=== PATIENT | male | born 1965 | race Caucasian/White ===

== ENCOUNTER → 2018-12-26 | Outpatient (CLI) | payer BC ==
--- NOTE | 2018-12-26 14:56 | PCVCIMAG ---
APPROVED REPORT Study performed: 12/26/2018 13:27:32 EXAM: Comprehensive 2D, Doppler, and color-flow Echocardiogram Patient Location: Echo lab Status: routine BSA: 2.19 HR: 78 bpmBP: 144/96 mmHg Rhythm: NSR Other Information Study Quality: Adequate Risk Factors: Cardiac Risk Factors: HTN, Hyperlipidemia Indications Chest Pain 2D Dimensions IVSd: 12.87 (7-11mm) LVDd: 46.56 mm PWd: 14.03 (7-11mm)Ascending Ao: 34.03 (22-36mm) LVDs: 36.32 (25-40mm) Left Atrium: 41.32 (27-40mm) Aortic Root: 30.18 mm LV Single Plane 4CH: 50.22 % LV Single Plane 2CH: 62.90 % Biplane EF: 56.7 % Volumes Left Atrial Volume (Systole) Single Plane 4CH: 52.25 mLSingle Plane 2CH: 65.40 mL LA ESV Index: 28.00 mL/m2 Aortic Valve AoV Peak Bassam.: 1.78 m/s AO Peak Gr.: 12.74 mmHgLVOT Max P.94 mmHg LVOT Max V: 1.32 m/s Mitral Valve E/A Ratio: 1.2 MV Decel. Time: 241.55 ms MV E Max Bassam.: 0.84 m/s MV A Bassam.: 0.71 m/s IVRT: 89.97 ms Pulmonary Valve PV Peak Bassam.: 1.25 m/sPV Peak Gr.: 6.25 mmHg Pulmonary Vein P Vein S: 0.35 m/sP Vein A: 0.35 m/s P Vein D: 0.54 m/sP Vein A Dur.: 114.2 msec P Vein S/D Ratio: 0.65 Tricuspid Valve TR Peak Bassam.: 2.78 m/s TR Peak Gr.: 30.91 mmHg TV Vmax: 0.64 m/s Left Ventricle The left ventricle is normal size. There is normal LV segmental wall motion. Mild concentric left ventricular hypertrophy. Left ventricular systolic function is normal. The left ventricular ejection fraction is within the normal range. LVEF is 55-60%. Grade I - abnormal relaxation pattern. Right Ventricle The right ventricle is normal size. The right ventricular systolic function is normal. Atria The left atrium size is normal. The right atrium size is normal. Aortic Valve The aortic valve is normal in structure. No aortic regurgitation is present. There is no aortic valvular stenosis. Mitral Valve The mitral valve is normal in structure. Mild mitral regurgitation. No evidence of mitral valve stenosis. Tricuspid Valve The tricuspid valve is normal in structure. Mild tricuspid regurgitation with PAP of 38 mmHg. Pulmonic Valve The pulmonary valve is normal in structure. There is mild pulmonic valvular regurgitation. Great Vessels The aortic root is normal in size. IVC is normal in size and collapses >50% with inspiration. Pericardium There is no pericardial effusion. There is no pleural effusion. <Conclusion> The left ventricle is normal size. Mild concentric left ventricular hypertrophy. Left ventricular systolic function is normal. Grade I - abnormal relaxation pattern. The right ventricle is normal size. The left atrium size is normal. The aortic valve is normal in structure. Mild mitral regurgitation. Mild tricuspid regurgitation with PAP of 38 mmHg.
--- NOTE | 2018-12-26 15:00 | PCVCIMAG ---
APPROVED REPORT Study performed: 12/26/2018 14:17:04 Exam: Stress Echocardiogram Indication: Chest pain, htn, hlp Patient Location: Echo lab Stress Nurse: Lizabeth Youssef RN Status: routine Ht: 5 ft 11 in HR: 78 bpm BP: 144/96 mmHg Rhythm: NSR Procedure The patient underwent an Exercise Stress Test using the Jaime Protocol. Blood pressure, heart rate, and EKG were monitored. An Echocardiogram was performed by patient care technician in four stages in quad fashion. At peak stress, four selected images were obtained and placed side by side with resting images for comparison. Stress Test Details Stress Test: Exercise stress testing was performed using a Jaime protocol. HR Resting HR: 78 bpmMax Heart Rate (APMHR): 165 bpm Max HR Achieved: 150 bpmTarget HR (85% APMHR): 140 bpm % of APMHR: 90 Recovery HR: 111 bpm HR response to stress: Normal HR response to stress BP Resting BP: 144/96 mmHg Max BP: 212/88 mmHg Recovery BP: 176/82 mmHg BP response to stress: Normal blood pressure response to stress. ECG Resting ECG: Sinus Rhythm, LVH with repolarization changes Stress ECG: Sinus Rhythm, LVH with repolarization changes ST Change: Nondiagnostic resting ST abnormalities Arrhythmia: None Recovery ECG: Sinus Rhythm, LVH with repolarization changes Recovery ST Change: Normal Recovery Arrhythmia: None Clinical Reason for Termination: Maximal effort, Dyspnea Stress Symptoms: Dyspnea, Leg Fatigue Exercise duration: 10 min sec Highest Stage Achieved: Stage 4: 4.2 mph at 16% grade. Exercise capacity: 13.4 METs Overall Exercise Capacity for Age: Normal Scale: Active Angina Score: None Pre-Stress Echo The resting Echocardiogram showed normal left ventricular contractility with an estimated Ejection Fraction of about >55%. The resting echocardiogram demonstrated normal wall motion in all wall segments. Normal wall motion in all segments on baseline images. Post-Stress Echo The stress Echocardiogram showed normal left ventricular contractility with an estimated Ejection Fraction of about 65%. Compared to rest, there were no stress-induced wall motion abnormalities. Normal augmentation of wall motion in all segments on post stress images. Clinical No clinical or ECG evidence for ischemia. Conclusion Clinical Response: Non-ischemic Exercise Capacity: Average Stress ECG Response: Non-ischemic Stress Echo Images: Non-ischemic The left ventricle is normal in size and wall thickness in both the rest and stress images. Other Information Study Quality: Adequate <Conclusion> The left ventricle is normal in size and wall thickness in both the rest and stress images.
== END | disposition home or self-care (01) ==
LOC: PCVCIMAG 13:42
PROVIDERS: ATTEND Internal Medicine Cardiovascular Disease
DX: I08.1 Rheumatic disorders of both mitral and tricuspid valves (principal); I11.9 Hypertensive heart disease without heart failure; E78.5 Hyperlipidemia, unspecified
CPT/HCPCS: 93306; 93351